=== PATIENT | female | born 2000 | race African-American/Black ===

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

== ENCOUNTER 2020-09-13 22:01 | Emergency (ER) | payer SELFPAY ==
--- NOTE | 2020-09-13 23:40 | RAD ---
Right middle finger 3 views: 09/13/2020 COMPARISON: None available HISTORY: Injury, trauma, pain FINDINGS: There is an obliquely oriented nondisplaced fracture involving the medial base of the third distal phalanx. No additional fracture or evidence of dislocation. IMPRESSION: Fracture at the base of the third distal phalanx.
--- NOTE | 2020-09-13 23:40 | RAD ---
3 views left thumb: 09/13/2020 COMPARISON: None HISTORY: Injury, trauma, pain FINDINGS: No fracture or dislocation. No radiopaque foreign body or subcutaneous gas. IMPRESSION: No acute findings.
== END 2020-09-13 23:59 | disposition home or self-care (01) ==
LOC: NAV ERS 22:01
DX: S62.662A Nondisplaced fracture of distal phalanx of right middle finger, initial encounter for closed fracture (principal); S63.602A Unspecified sprain of left thumb, initial encounter; S00.412A Abrasion of left ear, initial encounter; Y04.0XXA Assault by unarmed brawl or fight, initial encounter

== ENCOUNTER 2020-12-14 12:00 | Emergency (ER) | payer MEDICAID, SELFPAY ==
[2020-12-14] MEDS ORDERED: predniSONE 20 MG TAB ONE (12:30)
[2020-12-14] MEDS ORDERED: Ibuprofen 800 MG TAB ONE (12:30)
== END 2020-12-14 13:20 | disposition home or self-care (01) ==
LOC: NAV ERS 12:00
DX: J45.901 Unspecified asthma with (acute) exacerbation (principal); K21.9 Gastro-esophageal reflux disease without esophagitis; J45.909 Unspecified asthma, uncomplicated; Z79.899 Other long term (current) drug therapy
CPT/HCPCS: 71046; 93005; J7512

== ENCOUNTER 2021-03-14 03:12 | Emergency (ER) | payer OTHER | END 2021-03-14 03:45 | disposition home or self-care (01) | LOC: NAV ERS 03:12 | DX: O99.891 Other specified diseases and conditions complicating pregnancy (principal); M94.0 Chondrocostal junction syndrome [Tietze]; O99.612 Diseases of the digestive system complicating pregnancy, second trimester; K92.89 Other specified diseases of the digestive system | CPT/HCPCS: 99284 ==